=== PATIENT | female | born 2000 | race Caucasian/White ===

== ENCOUNTER 2020-11-09 10:42 | Outpatient (CLI) | payer OTHER, SELFPAY ==
--- NOTE | 2020-11-09 11:11 | US_ITS ---
WS: [id number] INDICATION: Neck nodule TECHNIQUE: Ultrasound soft tissue area of concern FINDINGS: Ultrasound soft tissue area of concern in the area of the left lobe. No evidence of drainab le abscess or fluid collection. A few incidental normal-sized lymph nodes the largest measuring 7 mm. No other significant findings. US/US soft tissue head neck 75150 IMPRESSION: No evidence of drainable abscess or fluid collection. A few inciden cesar normal-sized lymph nodes the largest measuring 7 mm.
== END 2020-11-09 10:43 | disposition home or self-care (01) ==
PROVIDERS: PCP Family Medicine; Visit Provider Nurse Practitioner Family
DX: R22.1 Localized swelling, mass and lump, neck (principal)
CPT/HCPCS: 76536

== ENCOUNTER 2021-12-20 02:45 | Outpatient (CLI) | payer OTHER, BC, MEDICAID, SELFPAY ==
[2021-12-20 02:45] VITALS: RESP 16; BMI 34.1
[2021-12-20 02:55] VITALS: BP 138/96; PULSE 71
[2021-12-20 03:43] VITALS: BP 134/84; PULSE 65
== END 2021-12-20 03:50 | disposition home or self-care (01) ==
LOC: OPOB 02:46 → OBGYN 02:47
PROVIDERS: PCP Family Medicine; Visit Provider Family Medicine
DX: O46.90 Antepartum hemorrhage, unspecified, unspecified trimester (principal); Z3A.00 Weeks of gestation of pregnancy not specified
CPT/HCPCS: 59025; 99211

== ENCOUNTER 2021-12-20 08:07 | Inpatient (IN) | payer OTHER, BC, MEDICAID, SELFPAY ==
[2021-12-20] VITALS (70 sets, daily range): BP systolic 97–137; BP diastolic 56–88; PULSE 66–202; RESP 16–18; TEMP 35.9–36.9; O2SAT 80–100; BMI 34.1
[2021-12-20 09:19] LABS: Basophils % 0.1 %; Eosinophils % 0.1 %; Hematocrit 38.5 % (37.0-47.0); Hemoglobin 13.1 g/dL (11.5-15.3); Lymphocytes # 1.6 10^3/uL (0.8-4.8); Lymphocytes % 18.5 %; Mean Corpuscular Hemoglobin 29.4 pg (28.0-34.0); Mean Corpuscular Volume 86.5 fl (81-99); Mean Platelet Volume 10.7 fL (7.4-10.4); Monocytes # 0.4 10^3/uL (0.2-0.9); Monocytes % 4.5 %; Neutrophils % 76.4 %; Nucleated Red Blood Cells % 0 %; Platelet Count 213 10^3/cmm (130-400); Red Blood Count 4.45 10^6/uL (4.1-5.3); Red Cell Distribution Width 13.6 % (12.1-15.1); White Blood Count 8.4 10^3/uL (4.0-10.0)
[2021-12-20] MEDS: lactated ringers 1,000 ML 999 ML IV ×2 (11:40→12:42)
--- NOTE | 2021-12-20 12:22 | ANES.PREANE2 ---
Pre-Anesthetic Assessment Height/Weight: Height 1.63 m Weight 90.265 kg Temp Pulse Resp BP O2 Del Method 96.8 F L 85 16 124/77 12/20/21 11:12 12/20/21 11:12 12/20/21 07:33 12/20/21 11:12 12/20/21 08:08 Preop Diagnosis: labor analgesia Labor epidural Familial anesthetic complications: None Was Beta Lyle taken within 24 hours: N/A Was Clonidine taken within 24 hours: N/A Last intake: Full stomach Social No alcohol and No tobacco Exam alert, oriented x 3, clear to auscultation bilaterally and regular rate & rhythm Airway Submandibular: within normal limits Cervical ROM: within normal limits Mallampati: Class II Dentition: full History/ROS No significant history except as noted and No significant complaints Pulmonary None reported CV/HEM None reported None reported Hepatic None reported GI None reported Metabolic None reported Musc/skel None reported Neuropsych None reported Anesthetic Plan ASA status: 2 Anesthesia: Anesthesia Evaluation, Eval. for regional block, General and Regional (specify below) (Labor epidural) Other: I discussed with patient the risk and benefits of labor epidural including PDPH, hypotension, back pain/discomfort/bruising, catastrophic nerve injury including paralysis, abscess, hematoma, failed block, one sided block, and LAST. Patient consents to labor epidural and in case of emergency consents to general anesthesia. Risk of > 500 ml blood loss (7ml/kg in children): No Medications/Allergies Home Medications Medication Instructions Recorded Confirmed Last Taken Type loratadine 10 mg tablet (Claritin) 10 mg PO DAILY 12/20/21 12/20/21 Unknown History vit no.95-ferrous 1 tab PO DAILY 12/20/21 12/20/21 Unknown History fumarate 28 mg-folic acid 800 mcg tablet () Allergies Allergy/AdvReac Type Severity Reaction Status Date / Time No Known Allergies Allergy Verified 12/20/21 03:02 Current Medications Generic Name Dose Route Start Last Admin Trade Name Freq PRN Reason Stop Dose Admin Lactated Ringer's 1,000 mls @ 999 mls/hr 12/20/21 11:27 12/20/21 11:40 Lactated Ringers IV 999 mls/hr .Q1H1M PRN Administration See label comments PFSH Anesthesia Female Reproductive History : 2 Data Anesthesia : 12/20/21 08:45 Short CBC 12/20/21 Range/Units 08:45 WBC 8.4 (4.0-10.0) 10^3/uL Hgb 13.1 (11.5-15.3) g/dL Hct 38.5 (37.0-47.0) % MCV 86.5 (81-99) fl Plt Count 213 (130-400) 10^3/cmm Neut % (Auto) 76.4 % Neut # (Auto) 6.40 (1.8-7.7) 10^3/uL Cardiac Studies: No Data to Display
[2021-12-20] MEDS: dextrose 5%-lactated ringers 1,000 ML 125 ML IV (17:45)
[2021-12-20] MEDS: oxytocin 30 UNIT/500 ML BAG 600 UNIT IV (18:24)
--- NOTE | 2021-12-20 19:18 | PM.OPHPUD ---
Labor & Delivery H&P Update Date of Procedure: December 20, 2021 Date H&P Performed: 12/14/21 Admission Diagnosis: Active labor IUP at 40 weeks 2 days gestation
--- NOTE | 2021-12-20 19:18 | PM.DELIVERY ---
Delivery Note: Date of delivery: December 20, 2021 Pre-Delivery Course: She had mother had routine care at [facility]. Her LIVAN was by her LMP which matched exactly with a 6-week ultrasound. LIVAN was 12/18. Mother was blood type O+, antibody negative, GC chlamydia negative, hepatitis B surface antigen nonreactive, hepatitis C antibody nonreactive, HIV nonreactive, RPR nonreactive, rubella immune, mother did fail her 1 hour but passed her 3-hour glucose tolerance test. She was GBS negative. Rupture of membranes was approximately 1 hour prior to delivery. Delivery: This is a 21-year-old G2, P1 at 40 weeks 2 days gestation who presented to labor and delivery in active labor. She received an epidural for pain management. When she was 7 cm dilated she underwent artificial rupture of membranes with clear fluid. Shortly thereafter she was complete and only had to push 1 time to have a normal spontaneous vaginal delivery of a viable female infant weight 3780 g, 8 pounds 5 ounces, Apgars 8 and 8 over an intact perineum. The infant was suctioned at delivery and placed on the mother's chest. The cord was clamped and cut. The placenta was delivered grossly intact and normal to inspection. Mother was doing well after delivery. Coding Level of Care Code Acute Electroencephalograph Technician for Sean Carranza
[2021-12-20] MEDS: ibuprofen 800 mg tablet PO (21:12)
[2021-12-20] MEDS: benzocaine-menthol 78 gm Canister 1 SPRAY TOPICAL (21:13)
[2021-12-20] MEDS: lanolin oint 7 gm 1 APPLIC TOPICAL (21:13)
[2021-12-21] VITALS (8 sets, daily range): BP systolic 106–137; BP diastolic 63–91; PULSE 62–85; RESP 17–18; TEMP 36.5–36.7; O2SAT 96–98
[2021-12-21] MEDS: acetaminophen 325 mg Tablet 650 MG PO ×2 (00:43→06:28)
[2021-12-21 08:46] LABS: Hematocrit 37.7 % (37.0-47.0); Hemoglobin 12.3 g/dL (11.5-15.3); Mean Corpuscular HGB Conc 32.6 g/dL (30.0-36.0); Mean Corpuscular Volume 88.9 fl (81-99); Mean Platelet Volume 10.7 fL (7.4-10.4); Platelet Count 191 10^3/cmm (130-400); Red Blood Count 4.24 10^6/uL (4.1-5.3); Red Cell Distribution Width 13.8 % (12.1-15.1); White Blood Count 9.1 10^3/uL (4.0-10.0)
--- NOTE | 2021-12-21 09:13 | ANE.PACU2 ---
Inpatient post-anesthesia follow up: Airway intact: Yes Vital signs: Temperature 97.8 F Pulse Rate 62 Respiratory Rate 17 Blood Pressure 137/91 Pulse Oximetry 98 Oxygen Delivery Me thod Room Air Oxygen Flow Rate Fraction of Inspir ed Oxygen Hydration adequate: Yes Nausea and vomiting: No Pain level: 2 Mental status: Baseline
[2021-12-21] MEDS: prenatal vitamin Capsule 1 CAP PO (10:37)
[2021-12-21] MEDS: docusate sodium 100 mg Capsule PO ×2 (10:37→18:20)
[2021-12-21] MEDS: ibuprofen 800 mg tablet PO ×2 (10:37→14:50)
--- NOTE | 2021-12-21 16:59 | PM.DCS ---
Discharge Providers Date of Admission: 12/20/21 08:07 Date of Discharge: December 21, 2021 Attending Provider at Admission: Nica Mckeon MD Attending Provider at Discharge: Nica Mckeon MD Primary Care Provider: Douglas Murrieta Reason for Visit Reason for Visit: contractions Hospital Course Hospital Course This is a 21-year-old G2 now P2 who was admitted in active labor. She had a normal spontaneous vaginal delivery of a viable female . Mother and did well after delivery. She was ambulating, tolerating a regular diet, had average vaginal bleeding and was requesting discharge home. Physical Exam Narrative: Alert and oriented, sitting up in bed, heart regular rate and rhythm, lungs clear to auscultation bilaterally, abdomen is soft fundus is firm and nontender, extremities have 1+ nonpitting edema. No calf tenderness Urinary Catheter Management: Manriquez Latex: Cath Placed During This Visit: yes, but has since been removed by the nurse Reason for Continuing Indwelling Catheter: Required Immobilization for Trauma or Surgery or Anesthesia Urinary Catheter Date of Insertion: 12/20/21 Urinary Catheter Time of Insertion: 13:52 Date Urinary Catheter Removed: 12/20/21 Time Urinary Catheter Discontinued: 18:14 Discharge Data Studies Completed and Pending Laboratory Results WBC 9.1 10^3/uL (4.0-10.0) 12/21/21 08:30 RBC 4.24 10^6/uL (4.1-5.3) 12/21/21 08:30 Hgb 12.3 g/dL (11.5-15.3) 12/21/21 08:30 Hct 37.7 % (37.0-47.0) 12/21/21 08:30 MCV 88.9 fl (81-99) 12/21/21 08:30 MCH 29.0 pg (28.0-34.0) 12/21/21 08:30 MCHC 32.6 g/dL (30.0-36.0) 12/21/21 08:30 RDW 13.8 % (12.1-15.1) 12/21/21 08:30 Plt Count 191 10^3/cmm (130-400) 12/21/21 08:30 MPV 10.7 fL (7.4-10.4) H 12/21/21 08:30 Neut % (Auto) 76.4 % 12/20/21 08:45 Lymph % (Auto) 18.5 % 12/20/21 08:45 [place] % (Auto) 4.5 % 12/20/21 08:45 Eos % (Auto) 0.1 % 12/20/21 08:45 Baso % (Auto) 0.1 % 12/20/21 08:45 Neut # (Auto) 6.40 10^3/uL (1.8-7.7) 12/20/21 08:45 Lymph # (Auto) 1.6 10^3/uL (0.8-4.8) 12/20/21 08:45 [place] # (Auto) 0.4 10^3/uL (0.2-0.9) 12/20/21 08:45 Eos # (Auto) 0.0 10^3/uL (0.0-0.8) 12/20/21 08:45 Baso # (Auto) 0.0 10^3/uL (0.0-0.1) 12/20/21 08:45 Nucleated RBC % (auto) 0 % 12/20/21 08:45 Nucleated RBCs # 0.0 /100WBC 12/20/21 08:45 Vitals Last Vital Signs Temp 98.0 F 12/21/21 13:30 Pulse 64 12/21/21 15:11 Resp 17 12/21/21 04:03 BP 120/80 12/21/21 15:11 Pulse Ox 98 12/21/21 06:20 O2 Del Method 12/21/21 15:11 Discharge Plan Discharge Patient Disposition: Home Condition: Stable Prescriptions: Continued loratadine [Claritin] 10 mg Tablet 10 mg PO DAILY PNV cmb#95-ferrous fumarate-FA [] 28 mg iron- 800 mcg Tablet 1 tab PO DAILY Discharge Orders: Discharge Order (Routine); Ordered 12/21/21 Ordered By: Nica Mckeon Referrals: Nica Mckeon MD [Physician] - 1 month Discharge Diet: Usual diet Discharge Activity: Increase activity as tolerated Patient Instructions: Opioid Safety Discharge Attestations Time Spent in Discharge Care*: less than 30 min Quality Metrics Clinical Quality Measures [ No reported AMI, CVA or VTE this stay] Coding Level of Care Code Acute Chg FW DC note
== END 2021-12-21 19:52 | disposition home or self-care (01) | DRG 807 ==
LOC: OBGYN 12:06 → OPOB 12-21 05:37 → OBGYN 12-21 05:37
PROVIDERS: Admitting Provider Family Medicine; PCP Family Medicine; Visit Provider Family Medicine
DX: O48.0 Post-term pregnancy (principal); Z37.0 Single live birth; Z3A.40 40 weeks gestation of pregnancy
CPT/HCPCS: 36415; 51702; 59025; 59409; 85025; 85027; 99211; J2795